=== PATIENT | male | born 1985 | race Caucasian/White ===

== ENCOUNTER 2023-12-02 15:25 | Outpatient (CLI) | payer OTHER, SELFPAY ==
--- NOTE | ~2023-12-02 | XR_ITS ---
EXAM: XR lumbar spine 2-3V DATE: 12/02/2023 16:00 HISTORY: LBP,NKI,CRAMPING,RADIATES DOWN RT LEG . COMPARISON: None available. FINDINGS: Mild scoliosis. 5 nonrib-bearing lumbar-type vertebral bodies. Pedicles intact. Mild retrol istheses at L1-2 through L4-5. Moderate disc space narrowing and vacuum phenomenon at L4-5. Rudimenta ry disc at L5-S1. Bilateral sacralization of L5. Mild mid and lower lumbar facet hypertrophy and scle rosis. No fracture or dislocation. IMPRESSION: Bilateral sacralization of L5. Multilevel grade 1 retrolistheses at L1-2 through L4-5. Se mateusz degenerative disc disease at L4-5. Mid and lower lumbar facet arthropathy. Reviewed, dictated and finalized at location [facility]. IMPRESSION: Bilateral sacralization of L5. Multilevel grade 1 retrolistheses at L1-2 through L4-5. Severe degenerative disc disease at L4-5. Mid and lower lum bar facet arthropathy.
[2023-12-02 15:43] LABS: Basophils Absolute Auto 0.11 K/mm3 (0.00-0.10); Eosinophils Absolute Auto 0.45 K/mm3 (0.02-0.50); Eosinophils Percent Auto 4.1 % (1.0-6.0); Hematocrit 44.9 % (40.0-54.0); Hemoglobin 15.1 g/dL (14.0-18.0); Immature Granulocyte Absolute 0.05 K/mm3 (0.00-0.00); Immature Granulocyte Percent A 0.5 % (0.0-0.0); Lymphocytes Absolute Auto 2.65 K/mm3 (1.10-4.50); Lymphocytes Percent Auto 24.4 % (18.0-42.0); Mean Corpuscular HGB Conc 33.6 g/dL (32-36); Mean Corpuscular Hemoglobin 30.7 pg (27.0-31.0); Mean Corpuscular Volume 91.3 fL (78.0-102.0); Mean Platelet Volume 9.3 fl (8.7-11.0); Monocytes Absolute Auto 0.67 K/mm3 (0.10-0.90); Monocytes Percent Auto 6.2 % (2.0-11.0); Neutrophils Absolute Auto 6.93 K/mm3 (1.70-7.20); Neutrophils Percent Auto 63.8 % (50.0-70.0); Platelet Count Result 324 K/mm3 (150-420); Red Blood Count 4.92 M/mm3 (4.70-6.10); Red Cell Distribution Width 12.2 % (11.6-14.4); White Blood Count 10.9 K/mm3 (4.8-10.8)
[2023-12-02 16:08] LABS: Alanine Aminotransferase 57 U/L (16-63); Albumin Level 3.7 g/dL (3.4-5.0); Alkaline Phosphatase 151 U/L (46-116); Anion Gap 10 mmol/L (4-12); Aspartate Amino Transferase 25 U/L (15-37); Bilirubin,Total 0.5 mg/dL (0.00-1.00); Blood Urea Nitrogen 17 mg/dL (7-18); Calcium 9.2 mg/dL (8.5-10.1); Carbon Dioxide 28 mmol/L (21-32); Chloride 102 mmol/L (98-108); Cholesterol 202 mg/dL (0-200); Estimated Glomerular Filt Rate > 60; Glucose 101 mg/dL (70-99); HDL Direct 42 mg/dL (40-60); LDL Cholesterol Calculated 125 mg/dL (<130); Osmolality Calculated 291 mOsm/kg (285-295); Potassium 4.2 mmol/L (3.5-5.1); Sodium 140 mmol/L (136-145); Triglycerides 176 mg/dL (0-150)
[2023-12-02 16:29] LABS: Thyroid Stimulating Hormone Reflex 5.77 u/IU/mL (0.36-3.74)
== END 2023-12-02 15:26 | disposition home or self-care (01) ==
PROVIDERS: PCP Family Medicine; Visit Provider Family Medicine
DX: G89.29 Other chronic pain (principal); I10 Essential (primary) hypertension; E03.9 Hypothyroidism, unspecified; J45.909 Unspecified asthma, uncomplicated; M54.50 Low back pain, unspecified; M43.16 Spondylolisthesis, lumbar region; M51.36 Other intervertebral disc degeneration, lumbar region; M12.88 Other specific arthropathies, not elsewhere classified, other specified site
CPT/HCPCS: 36415; 72100; 80053; 80061; 84439; 84443; 85025

== ENCOUNTER 2023-12-09 14:24 | Outpatient (RCR) | payer OTHER, SELFPAY ==
--- NOTE | 2023-12-09 15:37 | OPREHPOC ---
Outpatient Therapy Plan of Care This is a Multidisciplinary Plan of Care that may contain components documented by all disciplines (PT, OT, and ST.) PT Problem 1 PT Problem #1 Knowledge Deficit PT Goal 1 Goal 1. independent and compliant with HEP Target Visit 4 PT Problem 2 PT Problem #2 Pain PT Goal 1 Goal 1. decrease pain at worst to 3/10 or less in the lower back Target Visit 8 PT Problem 3 PT Problem #3 Impaired Strength PT Goal 1 Goal 1. 5/5 R ankle DF 2. 5/5 L hip strength overall Target Visit 8 PT Problem 4 PT Problem #4 Impaired Range of Motion PT Goal 1 Goal 1. improve active lumbar flexion to reach the mid lu/ankles 2. improve active lumbar extension to 20 degrees 3. improve active side bending to 40 degrees 4. 35 degrees or less bilateral hamstrings tightness per the 90/90 test 5. mild or less bilateral piriformis mm tightness Target Visit 8 PT Problem 5 PT Problem #5 Impaired Functional Mobil PT Goal 1 Goal 1. oswestry to display 20% or less functional deficits 2. patient to tolerate walking 15 minutes or more without increased pain/symptoms 3. patient to return to mowing lawn at home with no more than 2 rest breaks 4. no R LE radicular symptoms Target Visit 8
--- NOTE | 2023-12-09 15:37 | PTOPEVAL1 ---
Assessment and note entered by [facility] [employer], PT Evaluation Information Assessment Status Evaluation Diagnosis low back pain Onset 12/02/23 Subjective Information patient reports he has had symptoms in the lower back for years. he reports he has had hypothyroidism for the last year or so and his increased weight has made his back pain increase. he reports he has increased pain and symptoms with walking. he reports he was able to mow the lawn, but now he has to take more than 3 rest breaks due to his pain. he reports his back will go out randomly if he turns suddenly. he reports it will tense up and stay tensed up for weeks. he reports he had an injection last week that shows DDD. he reports he would like to get an MRI after therapy. he reports his pain is generally lower at rest, but increased with activity. he reports when it is bad, he will have pain in the R buttock and down past the R knee like sciatica. he reports he has pins and needles in the R side. Reported Pain Level Pain Score 0: Self Report Assessment PT Clinical Summary mr daugherty is a 38 yo man who presents to skilled PT services for evaluation and treatment of lower back pain. he also reports infrequent R LE radicular symptoms in a sciatic nerve distribution . he presents with decreased lumbar rom, pain with activity, R DF weakness, L hip weakness, and piriformis/hamstrings mm tightness. continued skilled PT is indicated to improve his objective/ functional deficits and progress towards a return to his prior level functional activity performance /quality of life. Plan of Care Interventions Electrical Stimulation,Hot Pack/Cold Pack,Manual Therapy,Mechanical Traction,Neuro Re-education, Patient/Caregiver Educati,Therapeutic Activities, Therapeutic Exercise PT Services Indicated Yes Treatment Frequency and 2x weekly for 8 visits Duration These treatments will address the objective and functional deficits as defined above. The patient will be advanced safely and appropriately in order for the patient to progress towards his/her prior level of function. Additional exercises will be introduced and as well as a comprehensive home exercise program upon discharge, if needed, ?to ensure carryover of functional gains achieved in the clinic. This treatment plan has been reviewed and agreement upon by the patient.
--- NOTE | 2023-12-25 13:50 | PCPTNOTE ---
Patient called & cancelled scheduled appointment this date due to [illness ]
== END 2023-12-23 15:45 | disposition home or self-care (01) ==
LOC: CHSPT 14:24
PROVIDERS: PCP Family Medicine; Visit Provider Family Medicine
DX: M54.50 Low back pain, unspecified (principal); G89.29 Other chronic pain
CPT/HCPCS: 97014; 97110; 97161; G0283

== ENCOUNTER 2024-06-15 14:59 | Outpatient (CLI) | payer OTHER, SELFPAY ==
[2024-06-15 15:17] LABS: Basophils Absolute Auto 0.07 K/mm3 (0.00-0.10); Basophils Percent Auto 0.7 % (0.0-1.0); Eosinophils Absolute Auto 0.36 K/mm3 (0.02-0.50); Eosinophils Percent Auto 3.4 % (1.0-6.0); Hematocrit 42.5 % (40.0-54.0); Hemoglobin 14.6 g/dL (14.0-18.0); Immature Granulocyte Absolute 0.04 K/mm3 (0.00-0.00); Immature Granulocyte Percent A 0.4 % (0.0-0.0); Lymphocytes Absolute Auto 3.03 K/mm3 (1.10-4.50); Lymphocytes Percent Auto 28.9 % (18.0-42.0); Mean Corpuscular HGB Conc 34.4 g/dL (32-36); Mean Corpuscular Hemoglobin 30.7 pg (27.0-31.0); Mean Corpuscular Volume 89.5 fL (78.0-102.0); Mean Platelet Volume 9.3 fl (8.7-11.0); Monocytes Absolute Auto 0.74 K/mm3 (0.10-0.90); Monocytes Percent Auto 7.1 % (2.0-11.0); Neutrophils Absolute Auto 6.24 K/mm3 (1.70-7.20); Neutrophils Percent Auto 59.5 % (50.0-70.0); Platelet Count Result 303 K/mm3 (150-420); Red Blood Count 4.75 M/mm3 (4.70-6.10); Red Cell Distribution Width 11.9 % (11.6-14.4); White Blood Count 10.5 K/mm3 (4.8-10.8)
[2024-06-15 15:57] LABS: Alanine Aminotransferase 45 U/L (16-63); Albumin Level 3.6 g/dL (3.4-5.0); Alkaline Phosphatase 176 U/L (46-116); Anion Gap 12 mmol/L (4-12); Aspartate Amino Transferase 23 U/L (15-37); Bilirubin,Total 0.4 mg/dL (0.00-1.00); Blood Urea Nitrogen 16 mg/dL (7-18); Calcium 9.2 mg/dL (8.5-10.1); Carbon Dioxide 25 mmol/L (21-32); Chloride 101 mmol/L (98-108); Estimated Glomerular Filt Rate > 60; Glucose 99 mg/dL (70-99); Osmolality Calculated 287 mOsm/kg (285-295); Potassium 3.8 mmol/L (3.5-5.1); Sodium 138 mmol/L (136-145); Total Protein 7.7 g/dL (6.4-8.2)
[2024-06-15 16:16] LABS: Thyroid Stimulating Hormone Reflex 6.21 u/IU/mL (0.36-3.74)
[2024-06-15 16:43] LABS: Free T4 Free Thyroxine Reflex 1.08 ng/dL (0.76-1.46)
== END 2024-06-15 15:00 | disposition home or self-care (01) ==
PROVIDERS: PCP Family Medicine; Visit Provider Family Medicine
DX: E03.9 Hypothyroidism, unspecified (principal); I10 Essential (primary) hypertension
CPT/HCPCS: 36415; 80053; 84439; 84443; 85025

== ENCOUNTER 2024-07-12 07:59 | Outpatient (CLI) | payer OTHER, SELFPAY ==
--- NOTE | 2024-07-12 08:04 | EST_ITS ---
Patient Info Name: Chuck Mendoza Age: 38 years : 1985 Gender: Male Ht: 61 in Wt: 316 lbs BSA: 2.59 m2 HR: 80 bpm BP: 138 / 79 mmHg Heart Rhythm: Sinus Rhythm Technical Quality: Good Exam Date: 07/12/2024 9:37 AM Exam Location: [facility] Patient Status: Outpatient Admit Date: 07/12/2024 Staff Ordering Physician: Marcel Cartwright DO Attending Provider: Marcel Cartwright DO Exam Type: CA stress minerva w NM Study Info A regadenoson stress test was performed. History/Risk Factors Hypertension: Yes History/Risk Factors overweight, exercise intolerance, GERD, hyperhydrosis. Summary 1. 1. Negative lexiscan stress test for ischemic ST changes by ECG criteria. 2. 2. Stable hemodynamics throughout the test. 3. 3. Nuclear scan to follow and will be reported separately. Please correlate with it. Protocol: LEXISCAN Stress ECG Details Stage: REST Duration (min): 1 min : 44 sec HR (bpm): 84 SBP (mmHg): 138 DBP (mmHg): 79 Stage: REST Duration (min): 5 min : 6 sec HR (bpm): 82 SBP (mmHg): 138 DBP (mmHg): 79 Stage: REST Duration (min): 8 min : 9 sec HR (bpm): 82 SBP (mmHg): 138 DBP (mmHg): 79 Stage: STAGE 1 Duration (min): 0 min : 37 sec HR (bpm): 85 SBP (mmHg): 138 DBP (mmHg): 79 Stage: RECOVERY Duration (min): 0 min : 22 sec HR (bpm): 99 SBP (mmHg): 138 DBP (mmHg): 79 Stage: RECOVERY Duration (min): 1 min : 22 sec HR (bpm): 104 SBP (mmHg): 138 DBP (mmHg): 79 Stage: RECOVERY Duration (min): 2 min : 22 sec HR (bpm): 98 SBP (mmHg): 118 DBP (mmHg): 59 Stage: RECOVERY Duration (min): 3 min : 22 sec HR (bpm): 98 SBP (mmHg): 114 DBP (mmHg): 61 Stage: RECOVERY Duration (min): 4 min : 22 sec HR (bpm): 99 SBP (mmHg): 110 DBP (mmHg): 66 Stage: RECOVERY Duration (min): 5 min : 22 sec HR (bpm): 98 SBP (mmHg): 105 DBP (mmHg): 69 Stage: RECOVERY Duration (min): 6 min : 22 sec HR (bpm): 99 SBP (mmHg): 111 DBP (mmHg): 71 Stage: RECOVERY Duration (min): 6 min : 25 sec HR (bpm): 100 SBP (mmHg): 111 DBP (mmHg): 71 Rest HR: 82 bpm Peak HR: 107 bpm Rest Sys BP: 138 mmHg Peak Sys BP: 118 mmHg Max Pred HR: 180 bpm % Max Pred HR: 59 % Target HR: 153 bpm Max RPP: 12,626 bpm*mmHg BP Response: Normal blood pressure response Termination Reason: Completed Protocol Cardiac Symptoms: None Total Time: 0 min : 37 sec Rest Ferreira BP: 79 mmHg Peak Ferreira BP: 59 mmHg Total Dose: 0.4 mg Resting ECG Normal sinus rhythm - normal ECG. Stress ECG No abnormal ST/T wave changes. Arrhythmias None. Report Signatures
--- NOTE | 2024-07-12 16:38 | WPDCARIOSTRE ---
Nuclear Stress Test INDICATIONS Indications: Shortness of breath PROCEDURE Procedure Performed: Myocardial Perf Spect-Multi Procedure: Patient underwent a lexiscan stress test and immediately was injected with 32.6 mCi of cardiolyte. Multiple tomographic images were obtained. These are of good quality. There is no evidence of any perfusion defects with stress imaging. A separate resting images were obtained after patient was injected with 10.3 mCi of cardiolyte. Multiple tomographic images were obtained. These are of good quality. There is no evidence of any perfusion defects with rest imaging. CONCLUSION Conclusion: 1. Normal myocardial perfusion imaging demonstrating no perfusion defects with stress or rest imaging. 2. No reversible ischemia. 3. Left ventriculogram demonstrates normal LV ejection fraction of 56% with no wall motion abnormalities. 4. TID score 1.14 is not elevated.
== END 2024-07-12 08:00 | disposition home or self-care (01) ==
LOC: CHSCARD 08:01
PROVIDERS: PCP Family Medicine; Visit Provider Family Medicine
DX: E66.3 Overweight (principal); R07.9 Chest pain, unspecified; R68.89 Other general symptoms and signs
CPT/HCPCS: 78452; 93017; A9502; J2785

== ENCOUNTER 2024-07-15 06:54 | Outpatient (CLI) | payer OTHER, SELFPAY ==
--- NOTE | ~2024-07-15 | MR_ITS ---
MRI of the lumbar spine Clinical History: Back pain Technique: Axial T2-weighted images, and sagittal T1-weighted, T2-weighted, and T2 fat-sat images wer e acquired. Findings: There is no fracture or subluxation of the lumbar spine. Vertebral bodies maintain normal h eight and alignment. No suspicious bone marrow signal abnormality seen. At L1-L2 and L2-L3, disc contain normal signal and position. No disc bulge or herniation at these lev els. There is mild facet arthropathy at these levels. No spinal canal stenosis or neural foraminal na rrowing at these levels. At L3-L4, there is mild disc desiccation. There is minimal disc bulge and mild facet arthropathy. No central canal stenosis. Bowel minimal bilateral neural foraminal narrowing. At L4-L5, there is moderate degenerative disc narrowing with minimal disc bulge and mild facet arthro jeana. No central canal stenosis. There is mild bilateral neural foraminal narrowing. At L5-S1, there is no disc bulge or herniation. No spinal canal stenosis or neural foraminal narrowin g. Paravertebral soft tissues are unremarkable. Impression: Moderate spondylosis overall, worst at L4-L5. Please see details above. Reviewed, dictated and finalized at [facility]. [facility] Impression: Moderate spondylosis overall, worst at L4-L5. Please see details above.
== END 2024-07-15 06:55 | disposition home or self-care (01) ==
LOC: CHSIMG 06:55
PROVIDERS: PCP Family Medicine; Visit Provider Family Medicine
DX: G89.29 Other chronic pain (principal); M54.50 Low back pain, unspecified; M43.06 Spondylolysis, lumbar region
CPT/HCPCS: 72148

== ENCOUNTER 2024-11-17 13:01 | Outpatient (CLI) | payer OTHER, SELFPAY ==
--- NOTE | ~2024-11-17 | XR_ITS ---
3 VIEWS LUMBAR SPINE Ordering provider: Abbey Farley, MAT GAUGER History: . Radiculopathy . Comparison: None. FINDINGS: VERTEBRAL BODIES:Sacralization of L5. No visible fracture or subluxation. Degenerative changes of th e spine. DISK SPACES: Narrowing of the disc L4-L5 and L5-S1. SOFT TISSUES: Normal. IMPRESSION: No acute osseous abnormality lumbar spine. Sacralization of L5. Degenerative disc disease at the level of L4-L5 and L5-S1. Reviewed, dictated and finalized at location [facility].
== END 2024-11-17 13:02 | disposition home or self-care (01) ==
LOC: CHSIMG 13:03
PROVIDERS: PCP Family Medicine; Visit Provider Nurse Practitioner Family
DX: M54.16 Radiculopathy, lumbar region (principal); M51.369 Other intervertebral disc degeneration, lumbar region without mention of lumbar back pain or lower extremity pain
CPT/HCPCS: 72100

== ENCOUNTER 2024-11-18 15:28 | Outpatient (CLI) | payer OTHER, SELFPAY ==
--- NOTE | ~2024-11-18 | XR_ITS ---
HISTORY: right knee pain COMPARISON: None TECHNIQUE: 3 views of the right knee were performed FINDINGS: No acute or subacute fracture, erosion, lytic or sclerotic lesion. Medial tibiofemoral joint space narrowing is identified. No suprapatellar joint effusion is identified. The infrapatellar joint space is clear. IMPRESSION: Trace degenerative disease, without acute fracture. Reviewed, dictated and finalized at location [facility].
== END 2024-11-18 15:29 | disposition home or self-care (01) ==
LOC: CHSIMG 15:30
PROVIDERS: PCP Family Medicine; Visit Provider Nurse Practitioner Family
DX: M25.561 Pain in right knee (principal)
CPT/HCPCS: 73562

== ENCOUNTER 2025-01-31 14:33 | Outpatient (CLI) | payer OTHER, SELFPAY ==
[2025-01-31 15:10] LABS: Hematocrit 43.5 % (40.0-54.0); Hemoglobin 14.7 g/dL (14.0-18.0); Immature Granulocyte Percent A 0.2 % (0.0-0.0); Lymphocytes Absolute Auto 2.60 K/mm3 (1.10-4.50); Mean Corpuscular HGB Conc 33.8 g/dL (32-36); Mean Corpuscular Hemoglobin 31.2 pg (27.0-31.0); Mean Corpuscular Volume 92.4 fL (78.0-102.0); Nucleated Red Blood Cells Absolute Auto 0.00 K/mm3 (0.00-0.00); Nucleated Red Blood Cells Perc 0.0 % (0-0.0); Platelet Count Result 273 K/mm3 (150-420); Red Blood Count 4.71 M/mm3 (4.70-6.10); White Blood Count 10.1 K/mm3 (4.8-10.8)
[2025-01-31 15:46] LABS: Hemoglobin A1C 5.2 % (<5.7)
[2025-01-31 15:58] LABS: Free T3 4.03 pg/mL (2.18-3.98)
[2025-01-31 16:12] LABS: Thyroid Stimulating Hormone Reflex 3.000 uIU/mL (0.465-4.68)
[2025-01-31 16:51] LABS: Alanine Aminotransferase 50 U/L (6-50); Albumin Level 4.5 g/dL (3.5-5.1); Alkaline Phosphatase 160 U/L (38-126); Anion Gap 10 mmol/L (4-12); Aspartate Amino Transferase 37 U/L (17-59); Bilirubin,Total 0.8 mg/dL (0.2-1.3); Blood Urea Nitrogen 19 mg/dL (9-20); CRP 1.8 mg/dL (<1.0); Calcium 9.7 mg/dL (8.4-10.2); Carbon Dioxide 23 mmol/L (22-30); Chloride 106 mmol/L (98-107); Estimated Glomerular Filt Rate > 60; Glucose 106 mg/dL (65-110); Osmolality Calculated 290 mOsm/kg (285-295); Potassium 4.1 mmol/L (3.4-5.0); Sodium 139 mmol/L (137-145); Total Protein 8.0 g/dL (6.3-8.2)
[2025-01-31 17:03] LABS: Free T4 Free Thyroxine 1.22 ng/dL (0.78-2.19)
[2025-01-31 17:53] LABS: Vitamin B12 646.0 pg/mL (239-931)
== END 2025-01-31 14:34 | disposition home or self-care (01) ==
LOC: CHSLAB 14:34
PROVIDERS: PCP Family Medicine; Visit Provider Family Medicine
DX: E03.9 Hypothyroidism, unspecified (principal); I10 Essential (primary) hypertension; E53.8 Deficiency of other specified B group vitamins; F41.9 Anxiety disorder, unspecified; E11.9 Type 2 diabetes mellitus without complications
CPT/HCPCS: 36415; 80053; 82607; 82746; 83036; 84439; 84443; 84481; 85025; 86140

== ENCOUNTER 2025-03-15 12:16 | Outpatient (CLI) | payer OTHER, SELFPAY ==
[2025-03-20 20:07] LABS: Free Testosterone (Direct) 7.3 pg/mL (6.8-21.5)
== END 2025-03-15 12:17 | disposition home or self-care (01) ==
PROVIDERS: PCP Family Medicine; Visit Provider Family Medicine
DX: Z13.29 Encounter for screening for other suspected endocrine disorder (principal); R53.83 Other fatigue
CPT/HCPCS: 84402; 84403